=== PATIENT | male | born 1975 ===

== ENCOUNTER 2020-08-17 15:34 | Emergency (ER) | payer OTHER ==
[~2020-08-17] VITALS: Ht 172.7 cm; Wt 81.8 kg
[2020-08-17 15:54] VITALS: BP 149/79
== END 2020-08-17 17:11 | disposition left against medical advice (07) ==
LOC: EMS 15:37
DX: Z20.828 Contact with and (suspected) exposure to other viral communicable diseases (principal); Z53.21 Procedure and treatment not carried out due to patient leaving prior to being seen by health care provider